=== PATIENT | male | born 1950 | race Native Hawaiian/Other Pacific Islander ===

== ENCOUNTER 2016-07-06 13:45 | Emergency (ER) | payer MEDICARE ==
[~2016-07-06] VITALS: Ht 167.6 cm; Wt 113.6 kg
[~2016-07-06 13:45] MED LIST: ATOR10TA84 PO; DIGO125T87 PO; LISI-622 PO; METF500T4 PO; METO50TA5 PO; SIMV20TA6 PO; WARF5 PO; [UNRECOGNIZED DRUG - REMARK]
[2016-07-06] MEDS ORDERED: APIX2.5T PO (13:54)
[2016-07-06 13:56] LABS: GLUCOSE,POINT OF CARE 194 MG/DL (70-110)
[2016-07-06] MEDS ORDERED: SODIUM CHLORIDE 0.9% 1,000 ML IV ONE (14:45)
[2016-07-06] MEDS ORDERED: ONDANSETRON HCL 4 MG/2 ML VIAL IVP ONE (14:45)
[2016-07-06] MEDS ORDERED: MORPHINE SULFATE 4 MG/ML SYRINGE IVP ONE ×2 (14:45→16:15)
[2016-07-06 15:01] LABS: BASOPHILS % (AUTO) 0.1 % (0.0-2.0); EOSINOPHILS % (AUTO) 0.1 % (1.0-6.0); HEMATOCRIT 43.4 % (41-53); HEMOGLOBIN 14.3 g/dL (13.5-17.5); LYMPHOCYTES # (AUTO) 0.9 K/uL (1.0-4.8); LYMPHOCYTES % (AUTO) 9.9 % (22.0-44.0); MEAN CORPUSCULAR HEMOGLOBIN 31.5 pg (26.0-34.0); MEAN CORPUSCULAR HGB CONC 32.9 G/dL (31.0-37.0); MEAN CORPUSCULAR VOLUME 96 fL (80-100); MONOCYTES # (AUTO) 0.2 K/uL (0.1-1.0); MONOCYTES % (AUTO) 1.8 % (2.0-9.0); NEUTROPHILS # (AUTO) 8.2 K/uL (1.8-7.7); NEUTROPHILS % (AUTO) 88.1 % (40.0-70.0); PLATELET COUNT (AUTO) 206 K/uL (150-450); RED BLOOD CELL COUNT(AUTO) 4.53 MIL/uL (4.50-5.90); RED CELL DISTRIBUTION WIDTH 12.8 % (11.5-14.5); WHITE BLOOD COUNT (AUTO) 9.3 K/uL (4.5-11.0)
[2016-07-06 15:08] LABS: CALCIUM, TOTAL 8.5 mg/dL (8.8-10.5); CREATININE 1.27 mg/dL (0.60-1.30); INR 1.1 (0.9-1.1); POTASSIUM 4.7 mmol/L (3.5-5.1); PROTHROMBIN TIME 11.2 SEC (9.4-11.6)
[2016-07-06 15:20] LABS: BILIRUBIN,TOTAL 0.8 mg/dL (0.1-1.0); TOTAL PROTEIN, SERUM 8.9 g/dL (6.4-8.2)
[2016-07-06] MEDS ORDERED: BARIUM SULFATE 0.1% SUSPENSION 450 ML BOTTLE PO ONE (16:00)
[2016-07-06] MEDS ORDERED: SODIUM CHLORIDE 0.9% 100 ML ONE (16:45)
[2016-07-06] MEDS ORDERED: IOVERSOL 320 MG/ML 100 ML VIAL ONE (16:45)
[2016-07-06 18:38] VITALS: BP 146/86
== END 2016-07-06 18:54 | disposition home or self-care (01) ==
LOC: EMS 13:45
DX: R10.31 Right lower quadrant pain (principal); E11.9 Type 2 diabetes mellitus without complications; E78.00 Pure hypercholesterolemia, unspecified
CPT/HCPCS: 36415; 74177; 80053; 82962; 83690; 84484; 85025; 85610; 93005; 96361; 96374; 96375; 96376; 99285; J2270; J2405; J7030; J7050; Q9967